=== PATIENT | male | born 1955 | race Two or more races ===

== ENCOUNTER 2017-06-29 23:10 | Emergency (ER) | payer OTHER ==
[2017-06-29 23:24] VITALS: BP 141/90; PULSE 79; TEMP 98.4; BMI 26.6
[2017-06-29] MEDS ORDERED: PHENYLEPHRINE HCL 10 MG/1 ML SINGLE DOSE VIAL NR ONE (23:30)
--- NOTE | 2017-06-30 00:39 | PDOC ---
History of Present Illness - General Chief Complaint: Urinary Problem Stated Complaint: PRIAPRISM Time Seen by Provider: 06/29/17 23:14 History Source: Patient - History of Present Illness Travel History: No Initial Comments: 06/30/17 00:35 priapism s/p IC injection in office Timing/Duration: reports: constant Quality: reports: severe Abdominal Pain Onset Location: reports: other (penis) Pain Radiation: reports: no radiation Activities at Onset: reports: rest Treatment Prior to Arrive: worse with: analgesics Aggravating Factors: improves with: None Alleviating Factors: improves with: None Past History - Past Medical History Allergies/Adverse Reactions: Allergies Allergy/AdvReac Type Severity Reaction Status Date / Time No Known Allergies Allergy Unverified 06/29/17 23:11 Home Medications: Ambulatory Orders NK [No Known Home Medication] 06/29/17 COPD: No - Suicide/Smoking/Psychosocial Hx Smoking History: Never smoked Review of Systems - Review of Systems All Other Systems: Reviewed and Negative *Physical Exam - Vital Signs Last Vital Signs Temp Pulse Resp BP Pulse Ox 98.4 F 79 18 141/90 99 06/29/17 23:19 06/29/17 23:19 06/29/17 23:19 06/29/17 23:19 06/29/17 23:19 - Physical Exam General Appearance: Yes: Nourished, Appropriately Dressed Respiratory/Chest: positive: Lungs Clear Cardiovascular: positive: Regular Rate Gastrointestinal/Abdominal: negative: Tender Male Genitalia: positive: other (tumescent penis) Musculoskeletal: positive: Normal Inspection Extremity: positive: Normal Capillary Refill Integumentary: positive: Normal Color ED Treatment Course - Medications Given in the ED: ED Medications Discontinued Medications Generic Name Dose Route Start Last Admin Trade Name Freq PRN Reason Stop Dose Admin Phenylephrine HCl 1 mcg 06/29/17 23:30 06/29/17 23:35 Dion-Synephrine - NR 06/29/17 23:31 1 mcg ONCE ONE Administration Medical Decision Making - Medical Decision Making 06/30/17 00:37 priapism d/w Kody detumesced in ED with drainage of 15cc corporal blood and 2cc phenylephrine diluted in NS VS after procedure 130/87, 82 *DC/Admit/Observation/Transfer Diagnosis at time of Disposition: Priapism - Discharge Dispostion Disposition: HOME Condition at time of disposition: Stable - Referrals - Patient Instructions Printed Discharge Instructions: DI for Priapism - Post Discharge Activity
== END 2017-06-30 00:40 | disposition home or self-care (01) ==
LOC: FER 23:10
DX: N48.30 Priapism, unspecified (principal)
CPT/HCPCS: 99281-25